=== PATIENT | female | born 1950 | race Caucasian/White ===

== ENCOUNTER 2016-08-19 10:22 | Emergency (ER) | payer OTHER ==
[~2016-08-19] VITALS: Ht 167.6 cm; Wt 97.0 kg
[~2016-08-19 10:22] MED LIST: CELE100; HYDR10TA16 PO; LEVA500T33 PO; TAMS0.4C67 PO; VYTO10TA29 PO; ZIAC5TAB PO
[2016-08-19 10:29] VITALS: BP 152/86; PULSE 60; RESP 15; TEMP 97.8; O2SAT 97
[2016-08-19] MEDS ORDERED: ZETI10TA5 PO (10:42)
[2016-08-19] MEDS ORDERED: ZIAC106.25 PO (10:42)
[2016-08-19] MEDS ORDERED: ASPI81CH37 CHEW (10:42)
[2016-08-19] MEDS ORDERED: LOSA25TA PO (10:42)
[2016-08-19 10:43] VITALS: BP 149/88; PULSE 67; RESP 18; O2SAT 97
[2016-08-19] MEDS ORDERED: ACETAMINOPHEN/CODEINE 300 MG/30 MG TAB PO ONE (11:00)
[2016-08-19] MEDS ORDERED: ONDANSETRON ODT 4 MG TAB PO ONE (11:00)
[2016-08-19 11:07] VITALS: BP 137/72; PULSE 59; RESP 18; O2SAT 96
--- NOTE | 2016-08-19 12:45 | RADRPT ---
EXAM DATE/TIME: 08/19/2016 12:27 [place] COMPARISON: No previous studies available for comparison. INDICATIONS : Headache. RADIATION DOSE: 61.73 CTDIvol (mGy) MEDICAL HISTORY : Hypertension. SURGICAL HISTORY : None. ENCOUNTER: Initial ACUITY: 1 day PAIN SCALE: 1/10 LOCATION: cranial TECHNIQUE: Multiple contiguous axial images were obtained of the head. Using automated exposure control and adj ustment of the mA and/or kV according to patient size, radiation dose was kept as low as reasonably a chievable to obtain optimal diagnostic quality images. DICOM format image data is available electro nically for review and comparison. FINDINGS: CEREBRUM: The ventricles are normal for age. No evidence of midline shift, mass lesion, hemorrhage or acute in farction. No extra-axial fluid collections are seen. POSTERIOR FOSSA: The cerebellum and brainstem are intact. The 4th ventricle is midline. The cerebellopontine angle i s unremarkable. EXTRACRANIAL: The visualized portion of the orbits is intact. SKULL: The calvaria is intact. No evidence of skull fracture. CONCLUSION: 1. No acute intracranial abnormality identified. Jatinder Leiva MD on August 19, 2016 at 12:41 Board Certified Radiologist. This report was verified electronically.
--- NOTE | 2016-08-19 13:11 | PD ---
HPI Chief Complaint: Hypertension Time Seen by Provider: 10:37 Travel History International Travel<30 days: No Contact w/Intl Traveler<30days: No Traveled to known affect area: No History of Present Illness HPI C/O GOTTLIEB, 5/10, GENERALIZED HEADACHE, NO VISUAL CHANGES, NO PHOTOPHOBIA, NO N/V/D PFSH Past Medical History Arthritis: Yes Blood Disorders: No Cancer: No Cardiovascular Problems: Yes High Cholesterol: Yes Diminished Hearing: No Endocrine: No Genitourinary: No Hypertension: Yes Immune Disorder: No Musculoskeletal: Yes Neurologic: No Psychiatric: No Reproductive: No Respiratory: No ?: Not Menopausal: Yes Past Surgical History Other Surgery: Yes Social History Alcohol Use: Yes (SOCIAL) Tobacco Use: Yes (SOCIAL) Substance Use: No Allergies-Medications (Allergen,Severity, Reaction): Coded Allergies: Amoxicillin (Verified Allergy, Severe, Anaphylaxis, 08/19/16) DIFFICULTY BREATHING Penicillin (Verified Allergy, Severe, Anaphylaxis, 08/19/16) Reported Meds & Prescriptions Reported Meds & Active Scripts Active Zofran Odt (Ondansetron Odt) 4 Mg Tab 4 Mg SL Q6HR PRN Lortab (Hydrocodone-Acetaminophen) 7.5-325 Mg Tab 1 Tab PO Q6H PRN Reported Aspirin Low Dose (Aspirin) 81 Mg Chew 81 Mg CHEW DAILY Zetia (Ezetimibe) 10 Mg Tab 10 Mg PO DAILY Ziac (Bisoprolol Fumarate/HCTZ) 10-6.25 Mg Tab 2 Tab PO DAILY Losartan (Losartan Potassium) 25 Mg Tab 25 Mg PO BID Review of Systems Except as stated in HPI: all other systems reviewed are Neg HENT: Positive: Headaches Physical Exam Narrative GENERAL: SKIN: Warm and dry. HEAD: Atraumatic. Normocephalic. EYES: Pupils equal and round. No scleral icterus. No injection or drainage. ENT: No nasal bleeding or discharge. Mucous membranes pink and moist. NECK: Trachea midline. No JVD. CARDIOVASCULAR: Regular rate and rhythm. RESPIRATORY: No accessory muscle use. Clear to auscultation. Breath sounds equal bilaterally. GASTROINTESTINAL: Abdomen soft, non-tender, nondistended. Hepatic and splenic margins not palpable. MUSCULOSKELETAL: Extremities without clubbing, cyanosis, or edema. No obvious deformities. NEUROLOGICAL: Awake and alert. No obvious cranial nerve deficits. Motor grossly within normal limits. Five out of 5 muscle strength in the arms and legs. Normal speech. PSYCHIATRIC: Appropriate mood and affect; insight and judgment normal. Data Data Last Documented VS Vital Signs Date Time Temp Pulse Resp B/P Pulse Ox O2 Delivery O2 Flow Rate FiO2 08/19/16 11:07 59 18 137/72 96 08/19/16 10:29 97.8 Orders Acetamin-Codeine 300-30 Mg (Tylenol-Code (08/19/16 11:00) Ondansetron Odt (Zofran Odt) (08/19/16 11:00) Ct Brain W/O Iv Contrast(Rout) (08/19/16 11:25) [facility] Medical Decision Making Medical Screen Exam Complete: Yes Emergency Medical Condition: Yes Medical Record Reviewed: Yes Differential Diagnosis TENSION GOTTLIEB V ICH V SINUS GOTTLIEB Narrative Course PATIENT TOLERATED PO MEDS WELL, CONTROLLED BP, PAIN FREE...NO NEURO DEFICITS OR FINDINGS ON REPEAT EVALUATION...ADVISED PT AND FAMILY OF NEG CT FOR ICH Diagnosis Primary Impression: HEADACHE Additional Impression: HYPERTENSION Scripts Codeine-Acetaminophen 30-300 mg Tab1 Tab PO Q4H PRN (PAIN) #20 TAB Prov:Keenan Connolly MD 08/19/16 Ondansetron Odt (Zofran Odt)4 Mg Tab4 Mg SL Q6HR PRN (Nausea/Vomiting) #12 TAB Prov:Keenan Connolly MD 08/19/16 Disposition: 01 DISCHARGE HOME Condition: Stable Keenan Connolly MD Aug 19, 2016 13:11
[2016-08-19] MEDS ORDERED: ZOFR4TAB3 SL (13:13)
[2016-08-19] MEDS ORDERED: HYDR-3534 PO (13:13)
[2016-08-19] MEDS ORDERED: CODE30TA2 PO (13:28)
[2016-08-19 13:57] VITALS: BP 132/78
== END 2016-08-19 13:58 | disposition home or self-care (01) ==
LOC: PHED 10:22
DX: R51 Headache (principal); I10 Essential (primary) hypertension
CPT/HCPCS: 70450; 99285

== ENCOUNTER 2017-07-04 09:48 | Emergency (ER) | payer OTHER ==
[~2017-07-04] VITALS: Ht 167.6 cm; Wt 88.0 kg
[~2017-07-04 09:48] MED LIST changes: +ASPI81CH6 CHEW; -CELE100; +CODE30TA2 PO; +EZET10 PO; -HYDR10TA16 PO; -LEVA500T33 PO; +LOSA25TA PO; -TAMS0.4C67 PO; -VYTO10TA29 PO; +ZIAC106.25 PO; -ZIAC5TAB PO; +ZOFR4TAB3 SL
[2017-07-04 09:58] VITALS: BP 168/80; PULSE 48; RESP 16; TEMP 97.7; O2SAT 96
[2017-07-04] MEDS ORDERED: LOSA25TA PO (10:31)
[2017-07-04] MEDS ORDERED: FENO1TAB46 PO (10:31)
--- NOTE | 2017-07-04 10:37 | PD ---
HPI Chief Complaint: Head Injury Time Seen by Provider: 10:30 Travel History International Travel<30 days: No Contact w/Intl Traveler<30days: No Traveled to known affect area: No History of Present Illness HPI 66-year-old female presents to the emergency department for evaluation after head injury after she tripped and fell today around 7:45 AM at work. Patient denies any loss of consciousness. She denies any neck pain or back pain. No chest pain or abdominal pain. No vomiting. She has hematoma to the right upper eye orbit. Patient takes a baby aspirin daily, but denies any other anticoagulants. Current pain is 8/10, aching and throbbing, without radiation. No exacerbating or alleviating factors. Moderate severity. PFSH Past Medical History Arthritis: Yes Blood Disorders: No Cancer: No Cardiovascular Problems: Yes High Cholesterol: Yes Diminished Hearing: No Endocrine: No Genitourinary: No Hypertension: Yes Immune Disorder: No Musculoskeletal: Yes Neurologic: No Psychiatric: No Reproductive: No Respiratory: No ?: Not Menopausal: Yes Past Surgical History Other Surgery: Yes Social History Alcohol Use: Yes (SOCIAL) Tobacco Use: Yes (SOCIAL) Substance Use: No Allergies-Medications (Allergen,Severity, Reaction): Coded Allergies: amoxicillin (Unverified Allergy, Severe, Anaphylaxis, 09/23/16) DIFFICULTY BREATHING penicillin G (Unverified Allergy, Severe, Anaphylaxis, 09/23/16) Reported Meds & Prescriptions Reported Meds & Active Scripts Active Reported Fenofibrate 40 Mg Tab Unknown Dose PO DAILY Losartan (Losartan Potassium) 25 Mg Tab 12.5 Mg PO HS Aspirin Low Dose (Aspirin) 81 Mg Chew 81 Mg CHEW DAILY Zetia (Ezetimibe) 10 Mg Tab 10 Mg PO DAILY Ziac (Bisoprolol Fumarate/HCTZ) 10-6.25 Mg Tab 2 Tab PO DAILY Losartan (Losartan Potassium) 25 Mg Tab 25 Mg PO DAILY Review of Systems Except as stated in HPI: all other systems reviewed are Neg Physical Exam Narrative GENERAL: Well-nourished, well-developed female patient, ambulatory. Afebrile. SKIN: Focused skin assessment warm/dry. Patient has hematoma to the right upper eye orbit HEAD: Normocephalic. EYES: No scleral icterus. No injection or drainage. EOM intact ENT: Mucosa pink and moist. No erythema or exudates. No uvular edema. No uvular , palatal, or tonsillar deviation. Airway patent. Nasal turbinates appear normal without nasal blood, purulent drainage or septal hematoma. Bilateral tympanic membranes clear without erythema or perforation. NECK: Supple, trachea midline. No JVD or lymphadenopathy. CARDIOVASCULAR: Regular rate and rhythm without murmurs, gallops, or rubs. RESPIRATORY: Breath sounds equal bilaterally. No accessory muscle use. Lung sounds are clear to auscultation. GASTROINTESTINAL: Abdomen soft, non-tender, nondistended. MUSCULOSKELETAL: No cyanosis, or edema. BACK: Nontender without obvious deformity. No CVA tenderness. No midline spinal tenderness. She has full lateral rotation cervical spine without pain or stiffness. Data Data Last Documented VS Vital Signs Date Time Temp Pulse Resp B/P (MAP) Pulse Ox O2 Delivery O2 Flow Rate FiO2 07/04/17 10:25 16 07/04/17 09:58 97.7 48 168/80 (109) [address] Brain W/O Iv Contrast(Rout) (07/04/17 ) Ct Facial Bones W/O Iv Cont (07/04/17 ) Acetaminophen (Tylenol) (07/04/17 11:45) MDM Medical Decision Making Medical Screen Exam Complete: Yes Emergency Medical Condition: Yes Medical Record Reviewed: Yes Interpretation(s) Last Impressions Maxillofacial CT 07/04/17 0000 Signed Impressions: CONCLUSION: 1. Focal soft tissue swelling just above the right orbit. 2. No acute bony fracture. Head CT 07/04/17 0000 Signed Impressions: CONCLUSION: 1. Unremarkable and stable CT scan of the brain compared to the prior examinat ion. 2. Soft tissue swelling over the right orbit. Differential Diagnosis Closed head injury versus hematoma versus intracranial hemorrhage versus skull fracture versus orbital fracture versus orbital contusion Narrative Course 66-year-old female presents to the emergency department for evaluation after she tripped and fell, hitting her head. No LOC. She does have a large hematoma to the right upper eye orbit. Ice pack is applied. CT the brain and facial bones are ordered and pending. Patient declines pain medication at this time. CT of the brain shows soft tissue swelling, no acute intracranial abnormality. CT of the facial bones shows focal soft tissue swelling just above the right orbit, no acute bony fracture Imaging is reassuring. Patient states she has ibuprofen at home and does not need a prescription. She is instructed ice to hematoma and follow-up with her primary care physician. The patient was discharged in stable condition with instructions, including return instructions and follow up instructions. Diagnosis Primary Impression: Closed head injury Qualified Codes: S09.90XA - Unspecified injury of head, initial encounter Additional Impression: Hematoma Referrals: Primary Care Physician call for appointment Patient Instructions: General Instructions, Head Injury (ED), Hematoma (ED) Additional Instructions: Ice for 20 minutes on, 20 minutes off. Ibuprofen for pain. Follow-up with Worker's Comp. physician. Return to the emergency department for any acute worsening of symptoms. Med/Other Pt SpecificInfo: No Change to Meds Disposition: 01 DISCHARGE HOME Condition: Stable Martine Bryant ELISEO July 04, 2017 10:37
--- NOTE | 2017-07-04 11:43 | RADRPT ---
EXAM DATE: 07/04/2017 11:39 AM EDT AGE/SEX: 66 years / Female INDICATIONS: Trauma, fall today. Right periorbital swelling. CLINICAL DATA: This is the patient's initial encounter. Patient reports that signs and symptoms have been present for 1 day and indicates a pain score of 8/10. MEDICAL/SURGICAL HISTORY: Hypertension. None. RADIATION DOSE: 59.25 CTDI (mGy) COMPARISON: [facility], CT BRAIN W/O CONTRAST, 08/19/2016. . TECHNIQUE: CT of the head without contrast. Using automated exposure control and adjustment of the mA and/or kV according to patient size, radiation dose was kept as low as reasonably achievable to ob tain optimal diagnostic quality images. FINDINGS: Cerebrum: The ventricles are normal for age. No evidence of midline shift, mass lesion, hemorrhage or acute infarction. No extraaxial fluid collections are seen. Posterior Fossa: The cerebellum and brainstem are intact. The 4th ventricle is midline. The cerebe llopontine angle is unremarkable. Extracranial: The visualized portion of the orbits is intact. Focal soft tissue swelling over the ri ght orbit. The bony structures are grossly intact. Skull: The calvaria is intact. No evidence of skull fracture. No significant change compared to the prior study. CONCLUSION: 1. Unremarkable and stable CT scan of the brain compared to the prior examination. 2. Soft tissue swelling over the right orbit. Electronically signed by: Chacho Weiss MD 07/04/2017 11:41 AM EDT
[2017-07-04] MEDS ORDERED: ACETAMINOPHEN 325 MG TAB PO ONE (11:45)
--- NOTE | 2017-07-04 11:45 | RADRPT ---
EXAM DATE: 07/04/2017 11:39 AM EDT AGE/SEX: 66 years / Female INDICATIONS: Trauma, fall today. Right periorbital swelling. CLINICAL DATA: This is the patient's initial encounter. Patient reports that signs and symptoms have been present for 1 day and indicates a pain score of 8/10. MEDICAL/SURGICAL HISTORY: Hypertension. None. RADIATION DOSE: 25.71 CTDI (mGy) COMPARISON: No prior [facility] exams available for comparison. TECHNIQUE: Contiguous images in the axial and coronal planes were obtained using helical multirow de tector technique. Using automated exposure control and adjustment of the mA and/or kV according to p atient size, radiation dose was kept as low as reasonably achievable to obtain optimal diagnostic fatmata lity images. FINDINGS: Orbits: The orbital and infraorbital osseous structures are intact. The retroconal structures have a normal configuration. No radiopaque foreign bodies are seen. Nasal Bone: The nasal bone and maxillary spine are intact. Zygomatic Arches: Symmetric without evidence of fracture. Sinuses: Mild mucosal thickening in the right ethmoid sinus and right maxillary sinus. Otherwise, th e visualized paranasal sinuses are clear. No air-fluid levels are demonstrated. Nasal Cavity: Nasal septal deviation to the right. The middle and inferior turbinates are within nor mal limits. Soft Tissues: Focal soft tissue swelling is seen just above the right orbit. The underlying bony str uctures are grossly intact. Intracranial: No intracranial air seen. Cribriform Plate: Grossly intact. CONCLUSION: 1. Focal soft tissue swelling just above the right orbit. 2. No acute bony fracture. Electronically signed by: Chacho Weiss MD 07/04/2017 11:44 AM EDT
[2017-07-04] MEDS ORDERED: IBUP-232 PO (11:57)
== END 2017-07-04 12:08 | disposition home or self-care (01) ==
LOC: PHED 09:48 → PHEFT 12:08
DX: S09.90XA Unspecified injury of head, initial encounter (principal); S00.11XA Contusion of right eyelid and periocular area, initial encounter; W01.0XXA Fall on same level from slipping, tripping and stumbling without subsequent striking against object, initial encounter; Y99.0 Civilian activity done for income or pay; I10 Essential (primary) hypertension; E78.00 Pure hypercholesterolemia, unspecified; M19.90 Unspecified osteoarthritis, unspecified site; Z79.82 Long term (current) use of aspirin; Z72.0 Tobacco use
CPT/HCPCS: 70450; 70486; 99283